=== PATIENT | female | born 1955 | race Hispanic/Latino ===

== ENCOUNTER 2017-11-20 11:10 | Day surgery (SDC) | payer BC ==
[2017-11-17 14:55] VITALS: BMI 14.3
[2017-11-20 11:59] LABS: BASO # 0.03 K/mm3 (0.0-2.0); BASO % 0.5 % (0.0-3.0); EOS % 0.7 % (1.5-5.0); GRAN # 3.31 (1.4-6.5); GRAN % 54.2 % (50.0-68.0); HEMOGLOBIN 14.5 g/dL (12.0-16.0); LYMPH # 2.4 (1.2-3.4); LYMPH % 38.9 % (22.0-35.0); MEAN CORPUSCULAR HEMOGLOBIN 22.9 pg (25.0-35.0); MEAN CORPUSCULAR HGB CONC 33.7 g/dl (31.0-37.0); MEAN PLATELET VOLUME 9.2 fl (7.0-11.0); MONO # 0.4 (0.1-0.6); MONO % 5.7 % (1.0-6.0); RBC 6.32 10^6/uL (3.5-6.1); RED CELL DISTRIBUTION WIDTH 15.7 % (11.5-14.5); WHITE BLOOD COUNT 6.1 10^3/ul (4.5-11.0)
[2017-11-20 12:06] LABS: BLOOD UREA NITROGEN 10 mg/dL (7-21); CALCIUM 9.8 mg/dL (8.4-10.5); GFR AFRICAN-AMERICAN > 60; GFR NON-AFRICAN AMERICAN > 60
[2017-11-20 12:28] LABS: INR 0.95 (0.93-1.08); PARTIAL THROMBOPLASTIN TIME 33.4 Seconds (25.1-36.5); PROTHROMBIN TIME 10.9 SECONDS (9.4-12.5)
[2017-11-20] MEDS ORDERED: Lidocaine 1% Inj (20ml) ONE (13:39)
[2017-11-20] MEDS ORDERED: Midazolam 2 MG/2 ML VIAL ONE (13:39)
[2017-11-20] MEDS ORDERED: Oxycodone/Acetaminophen 5/325 mg Tab PO PRN (14:02)
[2017-11-20] MEDS ORDERED: Sodium Chloride 0.45% 1,000 ML IV SCH (14:15)
[2017-11-20 14:58] VITALS: PULSE 86; RESP 20; TEMP 98.4; O2SAT 92
--- NOTE | 2017-11-20 16:00 | RAD ---
HISTORY: lt lung bx COMPARISON: CT biopsy images same day FINDINGS: LUNGS: There is a dense infiltrate in the left upper lobe consistent with post biopsy hemorrhage. There is no pneumothorax PLEURA: No significant pleural effusion identified, no pneumothorax apparent. CARDIOVASCULAR: Normal. OSSEOUS STRUCTURES: No significant abnormalities. VISUALIZED UPPER ABDOMEN: Normal. OTHER FINDINGS: None. IMPRESSION: There is a dense infiltrate in the left upper lobe consistent with post biopsy hemorrhage. There is no pneumothorax
[2017-11-20 16:33] VITALS: BP 109/66
--- NOTE | 2017-11-20 19:16 | CT ---
PROCEDURE: CT guided left upper lobe lung biopsy. HISTORY: Smoker. 8 mm suspicious nodule with spiculated margins in the left upper lobe. Evaluate for malignancy PHYSICIAN(S): Gilmar Valentino MD. TECHNIQUE: The relative risks and indications of the procedure were explained to the patient and consent obtained. The patient was placed supine on the CT scanner and preliminary images through the lungs obtained. Conscious sedation and monitoring were provided throughout the procedure by a nurse. There is a spiculated 8 mm nodule in the mid left upper lobe. A oblique left anterior approach was selected and the area prepped and draped in the usual sterile fashion. 1% Xylocaine was used to anesthetize the skin and soft tissues. A 19 gauge guiding needle was advanced into the 8 mm spiculated nodule in the left upper lobe. Its position was confirmed with CT. Using coaxial technique, multiple core biopsies were obtained. The postprocedure images show no evidence of large pneumothorax and a moderate amount of hemorrhage. No HO mild ptosis was noted. IMPRESSION: 1. CT-guided left upper lobe lung biopsy as described above.
== END 2017-11-20 17:40 | disposition home or self-care (01) ==
LOC: SDS 11:10
PROVIDERS: ATTEND Radiology Vascular & Interventional Radiology
DX: J84.10 Pulmonary fibrosis, unspecified (principal)
CPT/HCPCS: 32405; 36415; 71045; 77012; 80048; 85025; 85610; 85730; 88305; 99152; J2250; J2405; J3010; J7030